=== PATIENT | female | born 1985 | race Asian ===

== ENCOUNTER 2018-01-05 01:00 | Inpatient (IN) | payer SELFPAY ==
[~2018-01-05] VITALS: Ht 165.1 cm; Wt 60.3 kg
[2018-01-05 00:36] VITALS: BP 127/55
[2018-01-05] MEDS ORDERED: LACTATED RINGERS 1,000 ML IV SCH (01:43)
[2018-01-05] MEDS ORDERED: LACTATED RINGERS 500 ML IV ONE (01:45)
[2018-01-05] MEDS ORDERED: AMPICILLIN 2,000 MG in NACL 0.9% MINI-BAG PLUS 100 ML IV SCH (01:45)
[2018-01-05] MEDS ORDERED: PROMETHAZINE 25 MG/ML VIAL IVP SCH (01:45)
[2018-01-05] MEDS ORDERED: NALBUPHINE 10 MG/ML AMP IVP SCH (01:45)
[2018-01-05] MEDS ORDERED: OXYTOCIN 10 UNITS/ML VIAL IM SCH (01:45)
[2018-01-05 02:01] LABS: BASOPHILS % (AUTO) 0.4 % (0.0-2.0); EOSINOPHILS % (AUTO) 0.1 % (0.0-4.0); HEMATOCRIT 36.9 % (36-48); HEMOGLOBIN 12.6 g/dL (12.0-16.0); LYMPHOCYTES # (AUTO) 1.5 K/uL (2.5-16.5); MEAN CORPUSCULAR HEMOGLOBIN 33 pg (27-31); MEAN CORPUSCULAR HGB CONC 34 g/dL (33-37); MEAN CORPUSCULAR VOLUME 95.7 fL (80-94); MONOCYTES # (AUTO) 0.4 K/uL (0.8-1.0); MONOCYTES % (AUTO) 5.4 % (1.7-9.3); NEUTROPHILS # (AUTO) 5.7 K/uL (1.8-7.7); NEUTROPHILS % (AUTO) 74.1 % (42.2-75.2); PLATELET COUNT (AUTO) 124 K/uL (140-450); RED BLOOD CELL COUNT(AUTO) 3.85 MIL/uL (4.20-5.40); RED CELL DISTRIBUTION WIDTH 13.5 % (11.6-13.7); WHITE BLOOD COUNT (AUTO) 7.7 K/uL (4.8-10.8)
[2018-01-05 02:17] LABS: APPEARANCE,URINE SL CLOUDY (CLEAR); BILIRUBIN,URINE NEGATIVE (NEGATIVE); BLOOD, URINE NEGATIVE (NEGATIVE); COLOR,URINE YELLOW (YELLOW); LEUKOCYTE ESTERASE ,URINE NEGATIVE (NEGATIVE); NITRITE, URINE NEGATIVE (NEGATIVE); UGLUCOSE NEGATIVE (NEGATIVE)
[2018-01-05 02:48] LABS: ANION GAP 14.3 (8-16); CARBON DIOXIDE 22.9 mmol/L (21-32); CREATININE 0.7 mg/dL (0.6-1.3); POTASSIUM 4.2 mmol/L (3.5-5.1); TOTAL BILIRUBIN 0.6 mg/dL (0.0-1.0)
[2018-01-05] MEDS ORDERED: AMPICILLIN 2,000 MG VIAL ONE (03:03)
[2018-01-05] MEDS ORDERED: MISOPROSTOL 25 MCG TAB ONE ×2 (03:03→07:38)
[2018-01-05] MEDS: MISOPROSTOL 25 MCG TAB VG PRN ×2 (03:50→07:46)
[2018-01-05] MEDS ORDERED: AMPICILLIN 1,000 MG in NACL 0.9% MINI-BAG PLUS 50 ML IV SCH (04:00)
[2018-01-05] MEDS ORDERED: AMPICILLIN 1,000 MG VIAL ONE (07:37)
--- NOTE | 2018-01-05 09:06 | NUR ---
PATIENT HAS BEEN SCREENED AND CATEGORIZED LOW NUTRITION RISK. PATIENT WILL BE SEEN WITHIN 7 DAYS OF ADMISSION. 01/11/[address]
[2018-01-05] MEDS ORDERED: PROMETHAZINE 25 MG/ML VIAL ONE (14:43)
[2018-01-05] MEDS ORDERED: NALBUPHINE 10 MG/ML AMP ONE (14:43)
[2018-01-05] MEDS ORDERED: ROPIVACAINE 0.2%/NS PREMIX 250 ML EPI ONE (18:38)
[2018-01-05] MEDS ORDERED: OXYTOCIN 20 UNITS in LACTATED RINGERS 1,000 ML IV SCH (18:55)
[2018-01-05] MEDS ORDERED: ROPIVACAINE 0.2%/NS PREMIX 250 ML EPI SCH (20:45)
[2018-01-05] MEDS ORDERED: OXYTOCIN 10 UNITS/ML VIAL ONE (23:57)
[2018-01-06] MEDS ORDERED: oxyCODONE/APAP 5/325 MG 1 TAB TAB PO PRN (03:15)
[2018-01-06] MEDS ORDERED: MEASLES, MUMPS, AND RUBELLA 1 VIAL SQVAC PRN (03:15)
[2018-01-06] MEDS ORDERED: OXYTOCIN 10 UNITS/ML VIAL IM PRN (03:15)
[2018-01-06] MEDS ORDERED: TEMAZEPAM 15 MG CAP PO PRN (03:15)
[2018-01-06] MEDS ORDERED: METHYLERGONOVINE 0.2 MG/ML AMP IM PRN (03:15)
[2018-01-06] MEDS ORDERED: BENZOCAINE/MENTHOL 20%-0.5% 60 GM CAN TP PRN (03:15)
[2018-01-06] MEDS ORDERED: HYDROcodone/APAP 5/325 MG 1 TAB TAB PO PRN (03:15)
[2018-01-06] MEDS: IBUPROFEN 800 MG TAB PO PRN ×3 (03:41→19:49)
[2018-01-06] MEDS ORDERED: DOCUSATE SOD/SENNA 50/8.6 MG 1 TAB PO SCH (21:00)
[2018-01-07] MEDS: IBUPROFEN 800 MG TAB PO PRN (04:16)
[2018-01-07 09:46] LABS: HEMATOCRIT 30.9 % (36-48); HEMOGLOBIN 10.2 g/dL (12.0-16.0)
== END 2018-01-07 20:35 | disposition home or self-care (01) | DRG 775 ==
LOC: MFCC 01:00
PROVIDERS: ADMIT Obstetrics & Gynecology; ATTEND Obstetrics & Gynecology
PROC: 10907ZC Drainage of Amniotic Fluid, Therapeutic from Products of Conception, Via Natural or Artificial Opening (ICD-10-PCS; principal; 2018-01-06)
PROC: 10E0XZZ Delivery of Products of Conception, External Approach (ICD-10-PCS; 2018-01-06)
PROC: 0KQM0ZZ Repair Perineum Muscle, Open Approach (ICD-10-PCS; 2018-01-06)
PROC: 3E0R3BZ Introduction of Anesthetic Agent into Spinal Canal, Percutaneous Approach (ICD-10-PCS; 2018-01-06)
PROC: 00HU33Z Insertion of Infusion Device into Spinal Canal, Percutaneous Approach (ICD-10-PCS; 2018-01-06)
PROC: 3E0234Z Introduction of Serum, Toxoid and Vaccine into Muscle, Percutaneous Approach (ICD-10-PCS; 2018-01-07)
DX: O48.0 Post-term pregnancy (principal); O70.1 Second degree perineal laceration during delivery; Z37.0 Single live birth; Z3A.40 40 weeks gestation of pregnancy; Z23 Encounter for immunization
CPT/HCPCS: 36415; 51702; 59200; 59409; 80053; 81003; 85018; 85025; 86592; 86762; 86886; 86900; 86901; 87340; 87653-90; 90715; J0290; J2300; J2550; J2590; J2795; J7120